=== PATIENT | female | born 1945 | race Caucasian/White ===

== ENCOUNTER 2016-11-28 07:24 | Day surgery (SDC) | payer OTHER ==
[~2016-11-28] VITALS: Ht 162.6 cm; Wt 74.8 kg
[2016-11-28] MEDS ORDERED: MEPERIDINE HCL/PF 100 MG/ML AMP ONE (07:45)
[2016-11-28] MEDS ORDERED: MIDAZOLAM HCL 5 MG/5 ML VIAL ONE (07:46)
[2016-11-28] MEDS ORDERED: SIMETHICONE 40 MG/0.6 ML ML ONE (07:46)
[2016-11-28] MEDS: MIDAZOLAM HCL 5 MG/5 ML VIAL ONE ×4 (08:51→09:01)
[2016-11-28 10:33] VITALS: BP_SYST 109
== END 2016-11-28 10:15 | disposition home or self-care (01) ==
LOC: SDS 07:24 → SMU 07:26 → SDS 10:15
PROVIDERS: ATTEND Internal Medicine Gastroenterology
DX: Z12.11 Encounter for screening for malignant neoplasm of colon (principal); D12.3 Benign neoplasm of transverse colon; K57.30 Diverticulosis of large intestine without perforation or abscess without bleeding; K64.8 Other hemorrhoids
CPT/HCPCS: 45385; 88305; J2175; J2250; J7030; 45384